=== PATIENT | female | born 1965 | race Caucasian/White ===

== ENCOUNTER → 2016-08-20 | Outpatient (CLI) | payer MEDICAID, MEDICARE ==
[~2016-08-20] MED LIST: BENT20TA PO; CELE20TA PO; CLAR10CA3 PO; COLA100C3 PO; CYTO100T PO; DOXE10CA PO; HYDR25T PO; INDO50CA PO; ISOVUE-370 76% 100ML VIAL (Q9967) As Ordered ONE; LAMI25TA PO; LYRI150C PO; PARO30TA PO; POLYOPD OU; REME15TA PO; SENO8.6T2 PO; TRAZ50TA4 PO; ZOFR20TA PO; ZOFR4SOL PO; lioresal PO
--- NOTE | 2016-08-20 08:39 | REP ---
Clinical: Follow-up pulmonary nodule. Comparison: 12/11/2015, 05/11/2014. Findings: The lung caruso are relatively well aerated, symmetric and without significant acute consolidation, nodule or mass lesion. Small scattered calcified granulomata along with partially calcified mediastinal and hilar lymph nodes compatible with prior granulomatous disease. A 4 mm noncalcified nodule in the peripheral left lower lobe (image 84) remains stable through 05/11/2014 and likely represents noncalcified granuloma. No adenopathy. No pleural effusion/reaction. No pneumothorax. Mediastinum demonstrates normal thoracic aorta, pulmonary vasculature and heart/pericardium. Tracheobronchial tree is patent (incidental small right tracheal diverticulum again noted). Surrounding musculoskeletal structures without focal osseous abnormality. Limited evaluation of the upper abdomen demonstrates normal bilateral adrenal glands. Impression: 1. Evidence for prior granulomatous disease including the 4 mm noncalcified nodule in the left lower lobe which remains stable over 2 years. 2. No acute, significant mediastinal or pleuroparenchymal process. Signed by Theron Echeverria MD 08/20/2016 08:31 A
== END ==
LOC: M RAD 07:52
PROVIDERS: ATTEND Student in an Organized Health Care Education/Training Program
DX: R91.1 Solitary pulmonary nodule (principal)
CPT/HCPCS: 71260; Q9967

== ENCOUNTER → 2016-12-17 | Outpatient (CLI) | payer MEDICAID, MEDICARE ==
[~2016-12-17] MED LIST changes: -COLA100C3 PO; +COLA100C5 PO; +HYDR-3363 PO; -HYDR25T PO; -ISOVUE-370 76% 100ML VIAL (Q9967) As Ordered ONE; -SENO8.6T2 PO; +SENO8.6T5 PO; +TRAZ50TA11 PO; -TRAZ50TA4 PO
== END ==
LOC: M LAB 13:19
PROVIDERS: ATTEND Psychiatry & Neurology Psychiatry
DX: Z51.81 Encounter for therapeutic drug level monitoring (principal); Z79.899 Other long term (current) drug therapy

== ENCOUNTER → 2016-12-17 | Outpatient (CLI) | payer MEDICAID, MEDICARE ==
[2016-12-17 15:00] LABS: ALBUMIN 3.7 GM/DL (3.2-5.2); ALBUMIN/GLOBULIN RATIO 1.37 (1.00-1.93); ALKALINE PHOSPHATASE 75 U/L (45-117); ALT/SGPT 15 U/L (12-78); ANION GAP 6 MEQ/L (8-16); AST/SGOT 9 U/L (15-37); BILIRUBIN,TOTAL 0.5 MG/DL (0.2-1.0); BLOOD UREA NITROGEN 11 MG/DL (7-18); CALCIUM LEVEL 8.8 MG/DL (8.5-10.1); CARBON DIOXIDE LEVEL 29 MEQ/L (21-32); CHLORIDE LEVEL 105 MEQ/L (98-107); CREATININE FOR GFR 0.98 MG/DL (0.55-1.02); GLOMERULAR FILTRATION RATE > 60.0 (>51); POTASSIUM SERUM 4.2 MEQ/L (3.5-5.1); SODIUM LEVEL 140 MEQ/L (136-145); TOTAL PROTEIN 6.4 GM/DL (6.4-8.2)
[2016-12-17 15:03] LABS: VITAMIN B12 LEVEL 452 PG/ML
[2016-12-17 15:04] LABS: FOLATE 7.6 NG/ML
[2016-12-18 08:10] LABS: GLUCOSE, FASTING 83 MG/DL (70-105)
== END ==
LOC: M LAB 13:24
PROVIDERS: ATTEND Obstetrics & Gynecology
DX: Z51.81 Encounter for therapeutic drug level monitoring (principal); Z79.899 Other long term (current) drug therapy; Z72.51 High risk heterosexual behavior

== ENCOUNTER → 2017-05-27 | Outpatient (REF) | payer MEDICARE ==
[2017-05-27 19:44] LABS: HEMATOCRIT 38.6 % (36.0-47.0); HEMOGLOBIN 12.8 g/dl (12.0-15.5); MEAN CORPUSCULAR HEMOGLOBIN 29.8 pg (27.0-33.0); MEAN CORPUSCULAR HGB CONC 33.2 g/dl (32.0-36.5); MEAN CORPUSCULAR VOLUME 89.8 fl (80.0-96.0); PLATELET COUNT, AUTOMATED 249 10^3/uL (150-450); RED CELL DISTRIBUTION WIDTH 15.1 % (11.5-14.5); WHITE BLOOD COUNT 4.8 10^3/uL (4.0-10.0)
[2017-05-27 20:47] LABS: FREE T4 0.92 NG/DL (0.76-1.46); THYROID STIMULATING HORMONE 0.834 uIU/ML (0.358-3.740)
== END ==
LOC: M LABNEURO 12:44
DX: R53.83 Other fatigue (principal)
CPT/HCPCS: 84443

== ENCOUNTER → 2017-05-27 | Outpatient (REF) | payer MEDICARE | LOC: M SFHCPLAZ 12:10 | DX: R53.83 Other fatigue (principal); Z53.8 Procedure and treatment not carried out for other reasons ==

== ENCOUNTER → 2017-10-06 | Outpatient (REF) | payer MEDICARE | LOC: M SFHCPLAZ 14:45 | DX: R33.9 Retention of urine, unspecified (principal); Z51.81 Encounter for therapeutic drug level monitoring; Z53.8 Procedure and treatment not carried out for other reasons ==

== ENCOUNTER → 2017-10-06 | Outpatient (CLI) | payer MEDICARE ==
[2017-10-06 17:20] LABS: ALBUMIN 3.9 GM/DL (3.2-5.2); ALKALINE PHOSPHATASE 68 U/L (45-117); ALT/SGPT 22 U/L (12-78); ANION GAP 6 MEQ/L (8-16); AST/SGOT 13 U/L (7-37); BILIRUBIN,TOTAL 0.3 MG/DL (0.2-1.0); BLOOD UREA NITROGEN 11 MG/DL (7-18); CARBON DIOXIDE LEVEL 30 MEQ/L (21-32); CHLORIDE LEVEL 105 MEQ/L (98-107); GLOMERULAR FILTRATION RATE > 60.0 (>51); GLUCOSE, FASTING 81 MG/DL (70-100); POTASSIUM SERUM 4.2 MEQ/L (3.5-5.1); SODIUM LEVEL 141 MEQ/L (136-145); TOTAL PROTEIN 6.9 GM/DL (6.4-8.2)
[2017-10-06 17:39] LABS: APPEARANCE, URINE MANUAL HAZY (CLEAR); BILIRUBIN, URINE MANUAL NEGATIVE (NEGATIVE); COLOR, URINE MANUAL YELLOW (YELLOW); GLUCOSE, URINE (UA) MANUAL NEGATIVE (NEGATIVE); KETONE, URINE MANUAL NEGATIVE (NEGATIVE); NITRITE, URINE MANUAL POSITIVE (NEGATIVE); PH,URINE MAN 5.5 UNITS (5.0 - 7.0); PROTEIN, URINE MANUAL NEGATIVE (NEGATIVE); UROBILINOGEN, URINE MANUAL NORMAL (NORMAL)
[2017-10-06 17:40] LABS: BLOOD URINE MANUAL NEGATIVE (NEGATIVE); LEUKOCYTE ESTERASE, URINE MAN NEGATIVE (NEGATIVE); MICROSCOPIC INDICATED? MAN YES (NO)
[2017-10-06 17:48] LABS: BACTERIA, URINE LARGE AMOUNT; HYALINE CAST, URINE NONE SEEN /lpf (0-1); MICROSCOPIC EXAM PERFORMED; RBC, URINE NONE SEEN /hpf (0-3); SQUAMOUS EPITHELIAL CELL URINE SMALL AMOUNT /hpf (SMALL AMT); WBC, URINE 0-1 /hpf (0-3)
== END ==
LOC: M LAB 15:47
DX: R33.9 Retention of urine, unspecified (principal); Z51.81 Encounter for therapeutic drug level monitoring; Z79.899 Other long term (current) drug therapy
CPT/HCPCS: 80053

== ENCOUNTER → 2017-10-13 | Outpatient (REF) | payer MEDICARE | LOC: M SFHCPLAZ 16:31 | DX: F31.9 Bipolar disorder, unspecified (principal); Z53.8 Procedure and treatment not carried out for other reasons ==

== ENCOUNTER → 2017-10-15 | Outpatient (CLI) | payer MEDICARE | LOC: M RAD 08:03 | DX: N85.4 Malposition of uterus (principal); R10.32 Left lower quadrant pain | CPT/HCPCS: 76856 ==

== ENCOUNTER → 2017-11-11 | Outpatient (CLI) | payer MEDICARE ==
[2017-11-11 13:59] LABS: HEMATOCRIT 38.5 % (36.0-47.0); HEMOGLOBIN 12.4 g/dl (12.0-15.5); MEAN CORPUSCULAR HGB CONC 32.2 g/dl (32.0-36.5); PLATELET COUNT, AUTOMATED 248 10^3/uL (150-450); RED BLOOD COUNT 4.14 10^6/uL (4.00-5.40); WHITE BLOOD COUNT 5.4 10^3/uL (4.0-10.0)
[2017-11-11 14:46] LABS: ALBUMIN 3.9 GM/DL (3.2-5.2); ALBUMIN/GLOBULIN RATIO 1.26 (1.00-1.93); ALKALINE PHOSPHATASE 72 U/L (45-117); ALT/SGPT 23 U/L (12-78); ANION GAP 6 MEQ/L (8-16); AST/SGOT 11 U/L (7-37); BILIRUBIN,TOTAL 0.3 MG/DL (0.2-1.0); BLOOD UREA NITROGEN 13 MG/DL (7-18); CARBON DIOXIDE LEVEL 29 MEQ/L (21-32); CHLORIDE LEVEL 107 MEQ/L (98-107); CREATININE FOR GFR 0.91 MG/DL (0.55-1.30); GLOMERULAR FILTRATION RATE > 60.0 (>51); GLUCOSE, FASTING 79 MG/DL (70-100); SODIUM LEVEL 142 MEQ/L (136-145)
[2017-11-14 09:57] LABS: LAMOTRIGINE (LAMICTAL) 6.7 ug/mL (2.0-20.0)
== END ==
LOC: M LAB 13:06
DX: R53.83 Other fatigue (principal); F31.9 Bipolar disorder, unspecified
CPT/HCPCS: 84443

== ENCOUNTER → 2017-11-18 | Outpatient (CLI) | payer MEDICARE ==
[2017-11-21 00:06] LABS: LAMOTRIGINE (LAMICTAL) 3.9 ug/mL (2.0-20.0)
== END ==
LOC: M LAB 14:43
DX: F31.9 Bipolar disorder, unspecified (principal)
CPT/HCPCS: 36415

== ENCOUNTER 2017-11-23 18:29 | Emergency (ER) | payer MEDICARE ==
[2017-11-23 18:46] LABS: BEDSIDE GLUCOSE 128 MG/DL (70-105)
[2017-11-23 18:51] LABS: HEMATOCRIT 38.4 % (36.0-47.0); MEAN CORPUSCULAR HEMOGLOBIN 30.4 pg (27.0-33.0); MEAN CORPUSCULAR HGB CONC 33.9 g/dl (32.0-36.5); MEAN CORPUSCULAR VOLUME 89.7 fl (80.0-96.0); PLATELET COUNT, AUTOMATED 252 10^3/uL (150-450); RED BLOOD COUNT 4.28 10^6/uL (4.00-5.40); RED CELL DISTRIBUTION WIDTH 14.6 % (11.5-14.5); WHITE BLOOD COUNT 7.1 10^3/uL (4.0-10.0)
[2017-11-23] MEDS: PREGABALIN 100 MG CAP (LYRICA) PO (19:06)
[2017-11-23] MEDS: NS 1,000 ML IV (19:06)
[2017-11-23] MEDS: LORazepam 2 MG/ML VIAL (J2060) IV (19:06)
[2017-11-23 19:36] LABS: ACETAMINOPHEN LEVEL < 2.0 UG/ML (10.0-30.0); ALBUMIN 4.2 GM/DL (3.2-5.2); ALKALINE PHOSPHATASE 74 U/L (45-117); ALT/SGPT 19 U/L (12-78); ANION GAP 9 MEQ/L (8-16); AST/SGOT 10 U/L (7-37); BILIRUBIN,DIRECT 0.1 MG/DL (0.0-0.2); BILIRUBIN,TOTAL 0.4 MG/DL (0.2-1.0); BLOOD UREA NITROGEN 9 MG/DL (7-18); CALCIUM LEVEL 8.8 MG/DL (8.5-10.1); CARBON DIOXIDE LEVEL 24 MEQ/L (21-32); CHLORIDE LEVEL 109 MEQ/L (98-107); CREATININE FOR GFR 0.96 MG/DL (0.55-1.30); ETHYL ALCOHOL (ETHANOL) < 0.003 % (0.000-0.010); GLOMERULAR FILTRATION RATE > 60.0 (>51); GLUCOSE, FASTING 117 MG/DL (70-100); POTASSIUM SERUM 3.6 MEQ/L (3.5-5.1); SALICYLATE LEVEL 2.8 MG/DL (5.0-30.0); SODIUM LEVEL 142 MEQ/L (136-145); TOTAL PROTEIN 7.2 GM/DL (6.4-8.2)
[2017-11-23 20:47] LABS: AMPHETAMINES LEVEL URINE NEGATIVE (NEGATIVE); BARBITURATES URINE NEGATIVE (NEGATIVE); BENZODIAZEPINES URINE NEGATIVE (NEGATIVE); CANNABINOIDS URINE POSITIVE (NEGATIVE); COCAINE METABOLITE URINE NEGATIVE (NEGATIVE); METHADONE URINE NEGATIVE (NEGATIVE); OPIATES URINE NEGATIVE (NEGATIVE); PHENCYCLIDINE URINE NEGATIVE (NEGATIVE)
== END 2017-11-23 21:06 | disposition home or self-care (01) ==
LOC: M ED 18:29
DX: F15.23 Other stimulant dependence with withdrawal (principal); M79.7 Fibromyalgia; G89.29 Other chronic pain; Z79.899 Other long term (current) drug therapy; F17.200 Nicotine dependence, unspecified, uncomplicated
CPT/HCPCS: J2060

== ENCOUNTER → 2017-11-25 | Outpatient (REF) | payer MEDICARE | LOC: M SFHCPLAZ 12:44 | DX: Z51.81 Encounter for therapeutic drug level monitoring (principal) ==

== ENCOUNTER → 2017-11-26 | Outpatient (REF) | payer MEDICARE | LOC: M SFHCPLAZ 15:23 | DX: Z51.81 Encounter for therapeutic drug level monitoring (principal) | CPT/HCPCS: 80307 ==

== ENCOUNTER → 2018-01-13 | Outpatient (CLI) | payer MEDICAID, MEDICARE ==
[~2018-01-13] MED LIST changes: +AMAN100T PO; +BACL10TA2 PO; +CELE1CAP9 PO; +ESCI20TA PO; +LAMO100T PO; +LYRI300C PO; +ONDA4TAB6 PO; +PANT40TA3 PO; +PREG100CA PO; +TRAZ-160 PO; -TRAZ50TA11 PO; -ZOFR20TA PO; +ZOFR4TAB16 PO
--- NOTE | 2018-01-13 12:00 | REPMRS ---
Patient History The patient states she had a clinical breast exam in 2017. Family history of prostate cancer at age 50 or over in maternal grandfather. Digital Mammo Screening Bilat: January 13, 2018 - Exam #: [id number] Bilateral CC and MLO view(s) were taken. Technologist: Sylvia Call, Technologist Prior study comparison: December 11, 2015, bilateral digital mammo screening bilat performed at [facility]. October 10, 2014, bilateral digital mammo screening bilat performed at [facility]. FINDINGS: The breast tissue is heterogeneously dense. This may lower the sensitivity of mammography. There has been no change in the appearance of the mammogram from the prior studies. There is a moderate amount of residual fibroglandular tissue which is fairly symmetric. There is no interval development of dominant mass, architectural distortion, or clustered microcalcification typical of malignancy. There are scattered, small, benign calcifications of doubtful clinical significance. 3-D tomosynthesis shows no additional findings. No significant changes when compared with prior studies. Assessment: BI-RADS/ACR category 2 mammogram. Benign finding(s). Recommendation Routine screening mammogram in 1 year (for women over age 40). This mammogram was interpreted with the aid of an FDA-approved computer-aided dectection system. A. Negative x-ray reports should not delay biopsy if a dominant or clinically suspicious mass is present. B. Four to eight percent of cancers are not identified by mammography. C. Adenosis and dense breast may obscure an underlying neoplasm. Electronically Signed By: Remigio Wolfe MD 01/13/18 1200
== END ==
LOC: M RAD 10:55
PROVIDERS: ATTEND Obstetrics & Gynecology
DX: Z12.31 Encounter for screening mammogram for malignant neoplasm of breast (principal)

== ENCOUNTER 2018-05-14 11:42 | Day surgery (SDC) | payer MEDICAID, MEDICARE ==
[~2018-05-14] VITALS: Ht 165.1 cm; Wt 68.4 kg
[~2018-05-14 11:42] MED LIST changes: +ARTI99.0 OP; +MIRA3350 PO; +NS 1,000 ML IV ONE; +VITA400D PO
[2018-05-14] MEDS ORDERED: TIZA2CAP PO ×2 (12:26)
[2018-05-14] MEDS ORDERED: fentaNYL 100 MCG/2 ML INJECTION (J3010) As Ordered ONE (13:08)
[2018-05-14] MEDS ORDERED: PROPOFOL 200 MG/20 ML VIAL As Ordered ONE (13:22)
[2018-05-14] MEDS ORDERED: LIDOCAINE 2% INJ 100 MG/5 ML SDV (FOR ANES.) As Ordered ONE (13:22)
--- NOTE | 2018-05-14 13:23 | ROOR ---
Patient Name: Cheli Rincon Procedure Date: 05/14/2018 1:08 PM Date of : 1965 Age: 52 Room: [facility] Gender: Female Note Status: Finalized Procedure: Upper GI endoscopy Indications: Dyspepsia, Nausea Providers: Gary CHEEMA MD Referring MD[facility] Allen Requesting Provider: Medicines: Monitored Anesthesia Care Complications: No immediate complications. Procedure: Pre-Anesthesia Assessment: - The heart rate, respiratory rate, oxygen saturations, blood pressure, adequacy of pulmonary ventilation, and response to care were monitored throughout the procedure. The Endoscope was introduced through the mouth, and advanced to the second part of duodenum. The upper GI endoscopy was accomplished without difficulty. The patient tolerated the procedure well. Findings: The esophagus was normal. The stomach was normal. The examined duodenum was normal. Impression: - Normal esophagus. - Normal stomach. - Normal examined duodenum. - No specimens collected. Recommendation: - Continue present medications. - Observe patient's clinical course. Gary Cheema MD Gary CHEEMA MD 05/14/2018 1:22:37 PM This report has been signed electronically. Number of Addenda: 0 Note Initiated On: 05/14/2018 1:08 PM Estimated Blood Loss: Estimated blood loss: none.
--- NOTE | 2018-05-14 13:34 | ROOR ---
Patient Name: Cheli Rincon Procedure Date: 05/14/2018 1:09 PM Date of : 1965 Age: 52 Room: [facility] Gender: Female Note Status: Finalized Procedure: Colonoscopy Indications: Generalized abdominal pain, Constipation Providers: Gary CHEEMA MD Referring MD: HEATHER MURILLO Heike [facility] HEATHER Allen Requesting Provider: Medicines: Monitored Anesthesia Care Complications: No immediate complications. Procedure: Pre-Anesthesia Assessment: - The heart rate, respiratory rate, oxygen saturations, blood pressure, adequacy of pulmonary ventilation, and response to care were monitored throughout the procedure. The Colonoscope was introduced through the anus and advanced to the cecum, identified by appendiceal orifice and ileocecal valve. The colonoscopy was performed with difficulty due to inadequate bowel prep. The patient tolerated the procedure well. The quality of the bowel preparation was poor. (Magnesium Citrate Plus Suprep) Findings: The perianal and digital rectal examinations were normal. The colon is grossly normal without large tumors or obstructing lesions. Unable to perform adequate detail examination. Small lesions may have been missed. Impression: - Preparation of the colon was poor. - The colon is grossly normal without large tumors or obstructing lesions. Unable to perform adequate detail examination. Small lesions may have been missed. - No specimens collected. Recommendation: - Repeat colonoscopy at the next available appointment because the bowel preparation was poor. - My office will put you on a recall schedule. You will be notified at the appropriate time for follow up. Gary Cheema MD Gary CHEEMA MD 05/14/2018 1:34:00 PM This report has been signed electronically. Number of Addenda: 0 Note Initiated On: 05/14/2018 1:09 PM Estimated Blood Loss: Estimated blood loss: none.
[2018-05-14 14:10] VITALS: BP 121/73
== END 2018-05-14 14:22 | disposition home or self-care (01) ==
LOC: M OPP 11:42
PROVIDERS: ATTEND Internal Medicine Gastroenterology
DX: K59.00 Constipation, unspecified (principal); R10.84 Generalized abdominal pain; R10.13 Epigastric pain; R11.0 Nausea; G47.30 Sleep apnea, unspecified; M79.7 Fibromyalgia; I48.91 Unspecified atrial fibrillation; Z79.899 Other long term (current) drug therapy
CPT/HCPCS: 43235; 45378; J3010

== ENCOUNTER → 2018-08-06 | Outpatient (REF) | payer MEDICARE, MEDICAID ==
[~2018-08-06] MED LIST changes: -INDO50CA PO; +INDO50CA11 PO; -NS 1,000 ML IV ONE; +TIZA2CAP PO; -TRAZ-160 PO; +TRAZ-252 PO
== END ==
LOC: M LABNEURO 15:33
PROVIDERS: ATTEND Family Medicine
DX: R53.82 Chronic fatigue, unspecified (principal)

== ENCOUNTER 2018-11-26 08:29 | Day surgery (SDC) | payer MEDICARE ==
[~2018-11-26] VITALS: Ht 165.1 cm; Wt 69.0 kg
[~2018-11-26 08:29] MED LIST changes: -ARTI99.0 OP; +ARTIDRO2 OP; -INDO50CA11 PO; +INDO50CA91 PO; +NS 1,000 ML IV ONE; +SERT25TA88 PO; +TIZA4TAB4 PO
[2018-11-26] MEDS ORDERED: LIDOCAINE 2% INJ 100 MG/5 ML SDV (FOR ANES.) As Ordered ONE (11:05)
[2018-11-26] MEDS ORDERED: PROPOFOL 200 MG/20 ML VIAL As Ordered ONE ×3 (11:05→12:05)
--- NOTE | 2018-11-26 11:40 | ROOR ---
Patient Name: Cheli Rincon Procedure Date: 11/26/2018 11:05 AM Date of : 1965 Age: 53 Room: [id number] Gender: Female Note Status: Finalized Procedure: Colonoscopy Indications: Change in bowel habits, Constipation. Previous colonoscopy with poor prep. Providers: Gary CHEEMA MD Referring MD: Helio Ambriz Do, KERVIN SANCHEZ MD Requesting Provider: Medicines: Monitored Anesthesia Care Complications: No immediate complications. Procedure: Pre-Anesthesia Assessment: - The heart rate, respiratory rate, oxygen saturations, blood pressure, adequacy of pulmonary ventilation, and response to care were monitored throughout the procedure. The Colonoscope was introduced through the anus and advanced to the terminal ileum, with identification of the appendiceal orifice and IC valve. The colonoscopy was performed without difficulty. The patient tolerated the procedure well. The quality of the bowel preparation was good. (Neurogenic colon prep)--8 Liter Golytely, Findings: The perianal and digital rectal examinations were normal. Two sessile polyps were found in the sigmoid colon. The polyps were 3 to 5 mm in size. These polyps were removed with a cold snare. Resection and retrieval were complete. The exam was otherwise without abnormality on direct and retroflexion views. Impression: - Two 3 to 5 mm polyps in the sigmoid colon, removed with a cold snare. Resected and retrieved. - Small to moderate Internal Hemorrhoids - The examination was otherwise normal on direct and retroflexion views. Recommendation: - Telephone endoscopist for pathology results in 2 weeks. - If the pathology report reveals adenomatous tissue, then repeat the colonoscopy for surveillance in 5 years. Gary Cheema MD Gary CHEEMA MD 11/26/2018 11:40:21 AM Electronically signed by Gary CHEEMA MD Number of Addenda: 0 Note Initiated On: 11/26/2018 11:05 AM Estimated Blood Loss: Estimated blood loss: none.
[2018-11-26 11:55] VITALS: BP 121/73
[2018-11-26] MEDS ORDERED: ePHEDrine SULFATE 25 MG/5 ML(5MG/ML) SYRINGE As Ordered ONE (12:05)
== END 2018-11-26 12:12 | disposition home or self-care (01) ==
LOC: M OPP 08:29
PROVIDERS: ATTEND Internal Medicine Gastroenterology
DX: R19.4 Change in bowel habit (principal); K59.00 Constipation, unspecified; D12.5 Benign neoplasm of sigmoid colon; K64.8 Other hemorrhoids; R00.8 Other abnormalities of heart beat; K21.9 Gastro-esophageal reflux disease without esophagitis; M19.90 Unspecified osteoarthritis, unspecified site; M54.89 Other dorsalgia; M54.2 Cervicalgia; L30.9 Dermatitis, unspecified; L40.9 Psoriasis, unspecified; F41.9 Anxiety disorder, unspecified; F32.9 Major depressive disorder, single episode, unspecified; G43.909 Migraine, unspecified, not intractable, without status migrainosus; F43.10 Post-traumatic stress disorder, unspecified; G47.8 Other sleep disorders; G47.30 Sleep apnea, unspecified; M79.7 Fibromyalgia; R06.83 Snoring; Z79.899 Other long term (current) drug therapy

== ENCOUNTER → 2018-12-31 | Outpatient (CLI) | payer MEDICARE ==
[~2018-12-31] MED LIST changes: -NS 1,000 ML IV ONE; +SERT25TA21 PO; -SERT25TA88 PO
[2018-12-31 13:27] LABS: HEMOGLOBIN A1c 5.4 %
[2018-12-31 13:41] LABS: ALBUMIN 3.8 GM/DL (3.2-5.2); ALT/SGPT 22 U/L (12-78); BILIRUBIN,TOTAL 0.6 MG/DL (0.2-1.0); BLOOD UREA NITROGEN 12 MG/DL (7-18); CALCIUM LEVEL 8.9 MG/DL (8.5-10.1); CARBON DIOXIDE LEVEL 29 MEQ/L (21-32); CHLORIDE LEVEL 106 MEQ/L (98-107); CHOLESTEROL LEVEL 171 MG/DL (< 200); CHOLESTEROL LEVEL 171 MG/DL (<200); CHOLESTEROL RISK RATIO 2.085 (<5); GLOMERULAR FILTRATION RATE > 60.0 (>51); GLUCOSE, FASTING 80 MG/DL (70-100); HDL CHOLESTEROL 82 MG/DL (>40); LDL CHOLESTEROL 76 MG/DL (<100); NON-HDL-C 89 MG/DL; POTASSIUM SERUM 4.3 MEQ/L (3.5-5.1); SODIUM LEVEL 140 MEQ/L (136-145); TOTAL PROTEIN 6.6 GM/DL (6.4-8.2); TRIGLYCERIDES LEVEL 64 MG/DL (<150)
== END ==
LOC: M LAB 12:25
PROVIDERS: ATTEND Nurse Practitioner Psychiatric/Mental Health
DX: F31.9 Bipolar disorder, unspecified (principal); Z79.899 Other long term (current) drug therapy

== ENCOUNTER 2019-05-10 13:29 | Emergency (ER) | payer MEDICARE ==
[~2019-05-10] VITALS: Ht 165.1 cm; Wt 68.2 kg
[~2019-05-10 13:29] MED LIST changes: -ARTIDRO2 OP; -LAMO100T PO; +LAMO100T3 PO; +POLYOPD OP
[2019-05-10] MEDS ORDERED: MIRT1TAB15 (13:39)
[2019-05-10 14:37] LABS: BASO # 0.1 10^3/uL (0.0-0.2); BASO % 0.6 % (0.0-1.0); EOS # 0.1 10^3/uL (0.0-0.5); HEMATOCRIT 37.9 % (36.0-47.0); HEMOGLOBIN 12.4 g/dl (12.0-15.5); LYMPH # 0.8 10^3/uL (1.5-5.0); LYMPH % 7.3 % (24.0-44.0); MEAN CORPUSCULAR HEMOGLOBIN 27.8 pg (27.0-33.0); MEAN CORPUSCULAR HGB CONC 32.7 g/dl (32.0-36.5); MONO % 8.4 % (0.0-5.0); NEUTROPHILS # 9.3 10^3/uL (1.5-8.5); NEUTROPHILS % 82.4 % (36.0-66.0); PLATELET COUNT, AUTOMATED 300 10^3/uL (150-450); RED BLOOD COUNT 4.46 10^6/uL (4.00-5.40); WHITE BLOOD COUNT 11.3 10^3/uL (4.0-10.0)
--- NOTE | 2019-05-10 14:45 | REP ---
PORTABLE CHEST X-RAY: SINGLE VIEW. HISTORY: Dyspnea and cough. Comparison chest x-ray: November 30, 2015. FINDINGS: Heart is not enlarged. Pleural angles are sharp. Interstitial markings are increased in the bases bilaterally consistent with interstitial infiltrates. There is granulomatous calcification behind the heart unchanged. IMPRESSION: Bibasilar interstitial lung disease consistent with interstitial infiltrates. Normal heart size. Interstitial changes are new from November 30, 2015. Granulomatous calcification projects over the left heart border. Electronically Signed by Cristian uFng MD 05/10/2019 03:23 P
[2019-05-10 15:08] LABS: ALBUMIN 3.7 GM/DL (3.2-5.2); ALT/SGPT 21 U/L (12-78); BILIRUBIN,DIRECT 0.2 MG/DL (0.0-0.2); BILIRUBIN,TOTAL 0.5 MG/DL (0.2-1.0); BLOOD UREA NITROGEN 9 MG/DL (7-18); CALCIUM LEVEL 8.9 MG/DL (8.5-10.1); CARBON DIOXIDE LEVEL 22 MEQ/L (21-32); CHLORIDE LEVEL 107 MEQ/L (98-107); CK-MB VALUE MASS 1.3 NG/ML (<3.6); CPK CREATINE PHOSPHOKINASE 79 U/L (26-192); CREATININE FOR GFR 0.87 MG/DL (0.55-1.30); GLOMERULAR FILTRATION RATE > 60.0 (>51); GLUCOSE, FASTING 87 MG/DL (70-100); MB/CK RELATIVE INDEX 1.65 (< OR =4); NT-PRO BNP 481 PG/ML (<125); POTASSIUM SERUM 4.1 MEQ/L (3.5-5.1); SODIUM LEVEL 140 MEQ/L (136-145); TOTAL PROTEIN 7.1 GM/DL (6.4-8.2); TROPONIN I < 0.02 NG/ML (< 0.10)
[2019-05-10] MEDS ORDERED: ISOVUE-370 76% 100ML VIAL (Q9967) As Ordered ONE (15:23)
[2019-05-10] MEDS ORDERED: predniSONE 20 MG TAB PO ONE (17:00)
[2019-05-10] MEDS ORDERED: PRED10TA2 PO (17:02)
[2019-05-10 17:17] VITALS: BP 124/72
--- NOTE | 2019-05-10 17:28 | ECGEPIP ---
[facility] - ED Test Date: 2019-05-10 Pat Name: LORNA PRADHAN Department: Room: - Gender: Female Type Caster: : 1965 Requested By: Kylie Keane Order Number: [id number] Reading MD: Kylie Keane Measurements Intervals [place] Rate: 82 P: 61 DC: 160 QRS: 54 QRSD: 97 T: 40 QT: 364 QTc: 428 Interpretive Statements SINUS RHYTHM POSSIBLE RIGHT VENTRICULAR CONDUCTION DELAY DECREASED RATE 05/29/14 Electronically Signed on 05-10-2019 17:27:53 EDT by Kylie Keane
--- NOTE | 2019-05-10 17:28 | REP ---
CT ANGIO CHEST: TECHNIQUE: Axial contrast enhanced images from the thoracic inlet to the upper abdomen using 100 mL Isovue 370 intravenous contrast material with multiplanar reformations. There is no CT evidence of pulmonary embolism. There is no thoracic aortic aneurysm or dissection. A few calcified granulomas are seen in the lower lobes. Calcified mediastinal and hilar lymph nodes are present. There is no pleural or pericardial effusion. Diffuse bilateral patchy ill-defined infiltrates are visualized, more so in the lower lobes bilaterally. These are nonspecific. Calcified granuloma is seen in the spleen. IMPRESSION: Nonspecific diffuse bilateral patchy ill-defined infiltrates bilaterally, more so in the lower lobes. No evidence of pulmonary embolism. No evidence of aortic dissection. Evidence of prior granulomatous disease. Electronically Signed by Sim Alvarado MD 05/10/2019 06:27 P
--- NOTE | 2019-05-11 12:11 | ED PDOC ---
Post-Departure Follow-Up dr beach faxed formal report of cxr for fu Joey Khoury MD May 11, 2019 12:11
--- NOTE | 2019-05-11 12:27 | ED PDOC ---
Post-Departure Follow-Up dr beach faxed cta chest for fu Joey Khoury MD May 11, 2019 12:27
== END 2019-05-10 17:22 | disposition home or self-care (01) ==
LOC: M ED 13:29
DX: R06.00 Dyspnea, unspecified (principal); R07.9 Chest pain, unspecified; J84.9 Interstitial pulmonary disease, unspecified; R91.8 Other nonspecific abnormal finding of lung field; F17.290 Nicotine dependence, other tobacco product, uncomplicated; R00.0 Tachycardia, unspecified; F31.9 Bipolar disorder, unspecified; M79.7 Fibromyalgia; M54.9 Dorsalgia, unspecified; Z79.899 Other long term (current) drug therapy
CPT/HCPCS: 71045; 71275; 80048; 80076; 82550; 82553; 83880; 84443; 84484; 85025; 85379; 93005; 93041; 94760; 99284; Q9967

== ENCOUNTER → 2019-05-30 | Outpatient (CLI) | payer MEDICARE ==
[~2019-05-30] MED LIST changes: +MIRT1TAB15; +PRED10TA2 PO
== END ==
LOC: M LABSMTC 10:48
PROVIDERS: ATTEND Family Medicine
DX: Z11.59 Encounter for screening for other viral diseases (principal); Z20.828 Contact with and (suspected) exposure to other viral communicable diseases

== ENCOUNTER → 2019-06-15 | Outpatient (CLI) | payer MEDICARE ==
--- NOTE | 2019-06-16 04:08 | REPPI ---
Clinical: Abnormal chest CT findings. Followup . Comparison: Chest CT dated 05/10/2019 . Technique: PA and lateral. Findings: The mediastinum and cardiac silhouette are normal. The lung caruso are clear and without acute consolidation, effusion, or pneumothorax. Previously noted infiltrates have resolved. The skeletal structures are intact and normal. Impression: 1. No acute cardiopulmonary process. 2. Previous infiltrate resolved. Electronically Signed by Theron Echeverria MD 06/16/2019 04:00 A
== END ==
LOC: M PLAIMG 11:59
PROVIDERS: ATTEND Family Medicine
DX: R93.89 Abnormal findings on diagnostic imaging of other specified body structures (principal)
CPT/HCPCS: 71046; G0463

== ENCOUNTER 2019-08-24 13:57 | Emergency (ER) | payer MEDICARE ==
[~2019-08-24] VITALS: Ht 165.1 cm; Wt 81.9 kg
[~2019-08-24 13:57] MED LIST changes: -PARO30TA PO; +PARO30TA65 PO
[2019-08-24] MEDS ORDERED: PRED10TA2 PO (15:33)
[2019-08-24 15:37] VITALS: BP 128/79
== END 2019-08-24 15:45 | disposition home or self-care (01) ==
LOC: M ED 13:57
DX: L30.9 Dermatitis, unspecified (principal)

== ENCOUNTER → 2019-11-11 | Outpatient (CLI) | payer MEDICARE ==
[~2019-11-11] MED LIST changes: -CYTO100T PO; +CYTO1TAB2 PO; +PANT40TA29 PO; -PANT40TA3 PO
--- NOTE | 2019-11-25 10:05 | REP ---
CERVICAL SPINE X-RAY: CLINICAL: Neuropathy TECHNIQUE: AP and lateral views of the cervical spine. FINDINGS: Advanced degenerative spondylosis noted at C5-6 through C6-7 and C7-T1. Findings include endplates sclerosis, disc space narrowing, osteophytosis and hypertrophic facet changes. No acute fracture/compression injury or subluxation. The spinous process are intact. Prevertebral soft tissues are normal. IMPRESSION: Advanced degenerative changes from C5-6 through C7-T1. MTDD
--- NOTE | 2019-11-25 10:05 | REP ---
THORACIC SPINE SERIES: CLINICAL: Pain. TECHNIQUE: AP and lateral FINDINGS: Alignment and kyphosis is maintained. Moderate multilevel degenerative changes include endplate sclerosis with marginal spurring/osteophyte formation and scattered disc space narrowing. No acute fracture/compression injury or subluxation. IMPRESSION: Moderate multilevel degenerative spondylosis. MTDD
--- NOTE | 2019-11-25 10:06 | REP ---
RADIOLOGY NOTE LUMBAR SPINE X-RAY: CLINICAL: Back pain. TECHNIQUE: AP and lateral FINDINGS: Frontal view demonstrates mild chronic dextroconvex scoliosis centered at L2-3 along with endplates sclerosis and disc space narrowing. The lateral views demonstrates normal lordosis and no evidence for acute fracture/compression injury or subluxation. Moderate multilevel degenerative changes include end plates sclerosis with marginal spurring and disc space narrowing. IMPRESSION: Chronic dextroconvex scoliosis and mild to moderate multilevel degenerative spondylosis. No acute fracture/compression injury or subluxation. MTDD
== END ==
LOC: M LAB 15:44 → M RAD 15:44
PROVIDERS: ATTEND Chiropractor
DX: M99.01 Segmental and somatic dysfunction of cervical region (principal); M99.03 Segmental and somatic dysfunction of lumbar region; M54.13 Radiculopathy, cervicothoracic region; M51.36 Other intervertebral disc degeneration, lumbar region; M25.78 Osteophyte, vertebrae; M41.26 Other idiopathic scoliosis, lumbar region; M47.892 Other spondylosis, cervical region; M47.893 Other spondylosis, cervicothoracic region

== ENCOUNTER → 2020-03-24 | Outpatient (CLI) | payer MEDICARE ==
[~2020-03-24] MED LIST changes: -ESCI20TA PO; +ESCI20TA16 PO; +MIRT-62 PO; -REME15TA PO
[2020-03-24 13:49] LABS: BASO # 0.1 10^3/uL (0.0-0.2); BASO % 1.1 % (0.0-1.0); EOS # 0.2 10^3/uL (0.0-0.5); EOS % 2.7 % (0.0-3.0); HEMATOCRIT 41.3 % (36.0-47.0); HEMOGLOBIN 13.5 g/dl (12.0-15.5); LYMPH # 1.4 10^3/uL (1.5-5.0); LYMPH % 25.5 % (24.0-44.0); MEAN CORPUSCULAR HEMOGLOBIN 28.5 pg (27.0-33.0); MEAN CORPUSCULAR HGB CONC 32.7 g/dl (32.0-36.5); MEAN CORPUSCULAR VOLUME 87.1 fl (80.0-96.0); MONO # 0.6 10^3/uL (0.0-0.8); MONO % 11.1 % (0.0-5.0); NEUTROPHILS # 3.3 10^3/uL (1.5-8.5); NEUTROPHILS % 59.4 % (36.0-66.0); PLATELET COUNT, AUTOMATED 288 10^3/uL (150-450); RED BLOOD COUNT 4.74 10^6/uL (4.00-5.40); WHITE BLOOD COUNT 5.6 10^3/uL (4.0-10.0)
[2020-03-24 14:25] LABS: ALBUMIN 4.1 GM/DL (3.2-5.2); ALT/SGPT 20 U/L (12-78); BILIRUBIN,TOTAL 0.4 MG/DL (0.2-1.0); BLOOD UREA NITROGEN 16 MG/DL (7-18); CALCIUM LEVEL 9.3 MG/DL (8.5-10.1); CARBON DIOXIDE LEVEL 29 MEQ/L (21-32); CHLORIDE LEVEL 105 MEQ/L (98-107); CREATININE FOR GFR 0.89 MG/DL (0.55-1.30); GLOMERULAR FILTRATION RATE > 60.0 (>51); GLUCOSE, FASTING 89 MG/DL (70-100); LIPASE 445 U/L (73-393); POTASSIUM SERUM 4.4 MEQ/L (3.5-5.1); SODIUM LEVEL 140 MEQ/L (136-145); TOTAL PROTEIN 6.9 GM/DL (6.4-8.2)
== END ==
LOC: M LAB 13:08
PROVIDERS: ATTEND Family Medicine
DX: R10.9 Unspecified abdominal pain (principal)
CPT/HCPCS: 36415; 80053; 83690; 85025; G0463

== ENCOUNTER → 2020-03-29 | Outpatient (REF) | payer MEDICARE ==
[2020-03-29 14:54] LABS: CHOLESTEROL RISK RATIO 2.448 (<5); THYROID STIMULATING HORMONE 3.21 uIU/ML (0.358-3.740); TOTAL 25(OH) VITAMIN D 28.5 NG/ML (30.0-100.0)
== END ==
LOC: M SFHCPLAZ 10:05
PROVIDERS: ATTEND Family Medicine
DX: R10.13 Epigastric pain (principal); E55.9 Vitamin D deficiency, unspecified; Z13.220 Encounter for screening for lipoid disorders; Z79.899 Other long term (current) drug therapy
CPT/HCPCS: 36415; 80061; 82306; 83690; 84443; G0402

== ENCOUNTER → 2020-04-11 | Outpatient (CLI) | payer MEDICARE ==
[~2020-04-11] MED LIST changes: +ISOVUE-370 76% 100ML VIAL As Ordered ONE
--- NOTE | 2020-04-11 18:57 | REP ---
INDICATION: EPIGASTRIC ABD PAIN. COMPARISON: Comparison CT study 26 September 2014.. TECHNIQUE: Helical scanning was acquired and 4 mm axial images are re-formatted. Coronal and sagittal MPR images were generated and reviewed. The contrast enhancement dose is 100 mL of intravenous Isovue 370. FINDINGS: Digital preliminary mineral resources inspector radiograph demonstrates an unremarkable bowel gas pattern. On axial CT images, the lung bases show no evidence of infiltrate or pleural effusion. There is a noncalcified nodule in the left lower lobe of the lung 5 mm in diameter. This is displayed on page 03/15/2049 in series 204 of today's study. This is unchanged from the September 2014 prior study and is felt to be a benign granulomatous nodule. There is a granulomatous calcification in the spleen. Spleen is normal in size and otherwise homogeneous. No focal liver lesion is seen. Liver size is normal. No abnormality is noted in the gallbladder or the pancreas. Kidneys enhance symmetrically. There is a cyst in the right midpole region measuring 2.4 cm in diameter. This measured 1.7 cm in diameter in 2015. There is no evidence of hydronephrosis or renal mass. No retroperitoneal mass or adenopathy is observed. A normal appendix is seen in the right lower quadrant. No uterine or ovarian abnormality is seen. Urinary bladder is intact. No abdominal wall defect is seen. Small and large bowel loops are unremarkable in the abdomen and pelvis. No bony destructive lesion is seen. IMPRESSION: No acute abdominal or pelvic abnormality. <Electronically signed by Mamadou Fung > 04/11/20 [id number]
== END ==
LOC: M RAD 16:38
PROVIDERS: ATTEND Family Medicine
DX: R10.13 Epigastric pain (principal)
CPT/HCPCS: 74177; Q9967

== ENCOUNTER → 2020-04-25 | Outpatient (CLI) | payer MEDICARE ==
[~2020-04-25] MED LIST changes: -ISOVUE-370 76% 100ML VIAL As Ordered ONE
--- NOTE | 2020-04-25 11:03 | REPMRS ---
Patient History The patient states she has not had a clinical breast exam in over a year. Family history of prostate cancer at age 50 or over in maternal grandfather. 3D TOMOSYNTHESIS WAS PERFORMED. The Arnav Easton lifetime risk for breast cancer is 7.2%. Volpara breast density c. Digital Woman Screen Mammo: April 25, 2020 - Exam #: [id number] Bilateral CC and MLO view(s) were taken. Technologist: Ana Magaña, Technologist Prior study comparison: January 13, 2018, bilateral digital mammo screening bilat, performed at [facility]. December 11, 2015, bilateral digital mammo screening bilat, performed at [facility]. FINDINGS: The breast tissue is heterogeneously dense. This may lower the sensitivity of mammography. There has been no change in the appearance of the mammogram from the prior studies. There is a moderate amount of residual fibroglandular tissue which is fairly symmetric. There is no interval development of dominant mass, areas of architectural distortion, or clustered microcalcification typical of malignancy. Assessment: BI-RADS/ACR category 1 mammogram. Negative Mammogram. Recommendation Routine screening mammogram in 1 year (for women over age 40). This mammogram was interpreted with the aid of an FDA-approved computer-aided dectection system. Electronically Signed By: Sim Alvarado MD 04/25/20 [id number]
== END ==
LOC: M WHC 10:08
PROVIDERS: ATTEND Family Medicine
DX: Z12.31 Encounter for screening mammogram for malignant neoplasm of breast (principal)

== ENCOUNTER → 2020-07-26 | Outpatient (CLI) | payer MEDICARE ==
--- NOTE | 2020-07-26 16:38 | REPPI ---
INDICATION: M25.552 PAIN IN LEFT HIP. COMPARISON: None TECHNIQUE: AP pelvis two views left hip FINDINGS: The hip joint spaces are symmetric and relatively well maintained. The femoral heads are spherical in shape and symmetric in appearance. There is no acute fracture, dislocation, or subluxation. IMPRESSION: Within normal limits <Electronically signed by Brant Giron > 07/26/20 [id number]
== END ==
LOC: M PLAIMG 15:49
PROVIDERS: ATTEND Hospitalist
DX: M25.552 Pain in left hip (principal)
CPT/HCPCS: 73502; G0463

== ENCOUNTER 2020-08-18 15:07 | Emergency (ER) | payer MEDICARE ==
[~2020-08-18] VITALS: Ht 165.1 cm; Wt 72.4 kg
[2020-08-18] MEDS ORDERED: LAMO150T3 PO (15:17)
[2020-08-18] MEDS ORDERED: ZOLO100T PO (15:17)
[2020-08-18] MEDS ORDERED: HYDR-3363 PO (15:17)
[2020-08-18] MEDS ORDERED: LIDOCAINE 4% CREAM 5GM (LMX4) TOP ONE (16:20)
[2020-08-18] MEDS ORDERED: diazePAM 10MG/2ML SYRINGE (J3360 PER 5MG) IV ONE (16:20)
[2020-08-18] MEDS ORDERED: KETOROLAC 30 MG/ML 1ML VIAL IV ONE (16:20)
[2020-08-18] MEDS ORDERED: ISOVUE-370 76% 100ML VIAL As Ordered ONE (16:54)
[2020-08-18 17:02] LABS: BASO # 0.1 10^3/uL (0.0-0.2); EOS # 0.2 10^3/uL (0.0-0.5); HEMOGLOBIN 14.3 g/dl (12.0-15.5); LYMPH # 1.4 10^3/uL (1.5-5.0); LYMPH % 23.7 % (24.0-44.0); MEAN CORPUSCULAR HEMOGLOBIN 30.2 pg (27.0-33.0); MEAN CORPUSCULAR HGB CONC 33.3 g/dl (32.0-36.5); MEAN CORPUSCULAR VOLUME 90.9 fl (80.0-96.0); MONO # 0.7 10^3/uL (0.0-0.8); MONO % 12.4 % (2.0-8.0); NEUTROPHILS # 3.6 10^3/uL (1.5-8.5); NEUTROPHILS % 59.6 % (36.0-66.0); PLATELET COUNT, AUTOMATED 288 10^3/uL (150-450); RED BLOOD COUNT 4.73 10^6/uL (4.00-5.40)
--- NOTE | 2020-08-18 18:08 | REPVR ---
PROCEDURE INFORMATION: Exam: CT Cervical Spine Without Contrast Exam date and time: 08/18/2020 4:20 PM Age: 54 years old Clinical indication: Neck pain; Additional info: Severe pain post chiro, left sided TECHNIQUE: Imaging protocol: Computed tomography images of the cervical spine without contrast. Radiation optimization: All CT scans at this facility use at least one of these dose optimization techniques: automated exposure control; mA and/or kV adjustment per patient size (includes targeted exams where dose is matched to clinical indication); or iterative reconstruction. COMPARISON: MRI-C SPINE W/O FOLL BY WITH 04/25/2014 2:18 PM FINDINGS: Bones/joints: Reversal of cervical lordosis. Discs/Spinal canal/Neural foramina: Disc space narrowing at C5-C6 through C7-T1 with intervertebral osteophytes. Moderate bilateral foraminal narrowing at C2, C3, C4, moderate foraminal narrowing on the right and severe foraminal narrowing on the left at C5, severe bilateral foraminal narrowing at C6 and C7 secondary to osteophytic encroachment. Disc osteophyte complexes from C5-C6 through C7-T1 resulting in varying degrees of effacement of the ventral subarachnoid space. This is resulting in mild to moderate cord impingement at C5-C6, moderate cord impingement at C6-C7 mild cord impingement at C7-T1. Small posterior disc protrusions demonstrated at C2-C3 through C4-C5 effaces the ventral subarachnoid space without cord impingement. Lungs: Lung apices are normal. Soft tissues: Unremarkable. IMPRESSION: 1. Degenerative spondylosis. 2. No acute findings. Electronically signed by: Claudy Coburn On 08/18/2020 18:07:42 PM
[2020-08-18] MEDS ORDERED: METH-1165 PO (19:20)
[2020-08-18] MEDS ORDERED: ANEC4CRE3 TOP (19:20)
[2020-08-18 19:41] VITALS: BP 114/69
== END 2020-08-18 19:44 | disposition home or self-care (01) ==
LOC: M ED 15:07
DX: M54.2 Cervicalgia (principal); M62.830 Muscle spasm of back; J45.909 Unspecified asthma, uncomplicated; M79.7 Fibromyalgia; Z79.899 Other long term (current) drug therapy; Z91.018 Allergy to other foods; F17.210 Nicotine dependence, cigarettes, uncomplicated
CPT/HCPCS: 70498; 72125; 80047; 85025; 96374; 96375; 99284; J1885; J3360; Q9967

== ENCOUNTER → 2020-09-15 | Outpatient (CLI) | payer MEDICARE, MEDICAID ==
[~2020-09-15] MED LIST changes: +ANEC4CRE3 TOP; +LAMO150T3 PO; +METH-1165 PO; +ZOLO100T PO
[2020-09-15 13:28] LABS: BASO # 0.1 10^3/uL (0.0-0.2); BASO % 1.4 % (0.0-1.0); EOS # 0.2 10^3/uL (0.0-0.5); HEMATOCRIT 43.3 % (36.0-47.0); HEMOGLOBIN 14.2 g/dl (12.0-15.5); LYMPH # 1.9 10^3/uL (1.5-5.0); MEAN CORPUSCULAR HGB CONC 32.8 g/dl (32.0-36.5); MEAN CORPUSCULAR VOLUME 91.5 fl (80.0-96.0); MONO # 0.8 10^3/uL (0.0-0.8); MONO % 12.6 % (2.0-8.0); NEUTROPHILS # 3.5 10^3/uL (1.5-8.5); NEUTROPHILS % 53.7 % (36.0-66.0); PLATELET COUNT, AUTOMATED 269 10^3/uL (150-450); RED BLOOD COUNT 4.73 10^6/uL (4.00-5.40); WHITE BLOOD COUNT 6.4 10^3/uL (4.0-10.0)
[2020-09-15 14:01] LABS: ERYTHROCYTE SEDIMENTATION RATE 3 mm/hr (0-30)
[2020-09-15 14:02] LABS: C REACTIVE PROTEIN QUANTITATIV < 0.30 MG/DL (0.00-0.30); FREE T4 0.86 NG/DL (0.76-1.46); RHEUMATOID FACTOR QUANT < 10.0 IU/ML (<15.0); URIC ACID 2.9 MG/DL (2.6-6.0)
[2020-09-15 14:04] LABS: FOLATE 12.2 NG/ML; VITAMIN B12 LEVEL 558 PG/ML
== END ==
LOC: M PLALAB 11:38
PROVIDERS: ATTEND Physician Assistant Surgical
DX: M25.552 Pain in left hip (principal)

== ENCOUNTER → 2020-09-25 | Outpatient (CLI) | payer MEDICARE, MEDICAID ==
--- NOTE | 2020-09-25 16:32 | REPVR ---
PROCEDURE INFORMATION: Exam: MR Cervical Spine Without Contrast Exam date and time: 09/25/2020 11:00 AM Age: 55 years old Clinical indication: Neck pain; Additional info: Spinal stenosis TECHNIQUE: Imaging protocol: Multiplanar magnetic resonance images of the cervical spine without contrast. COMPARISON: CT Spine,cervical w/o contrast 08/18/2020 5:04 PM FINDINGS: Cervical vertebral body heights are intact. Straightening of the cervical lordosis. The dens is intact. Multilevel Modic type 1 edematous degenerative endplate change from C5 through T1. No cord compression, expansion, or abnormal cord signal. Visualized structures of the posterior fossa are unremarkable. Soft tissues are unremarkable. C2-C3: No significant canal or foraminal narrowing. C3-C4: Uncovertebral spurring causes mild left foraminal narrowing. No significant canal narrowing. C4-C5: Uncovertebral spurring causes mild bilateral foraminal narrowing. No significant canal narrowing. C5-C6: Posterior disc protrusion and uncovertebral spurring cause mild canal narrowing with moderate right and moderate to severe left foraminal narrowing. C6-C7: Posterior disc protrusion and uncovertebral spurring cause moderate canal narrowing with effacement of the anterior thecal sac. Moderate left and severe right foraminal narrowing. C7-T1: Posterior disc protrusion and uncovertebral spurring cause moderate canal narrowing. Severe bilateral foraminal narrowing. IMPRESSION: Multilevel spondylotic changes of the cervical spine, as detailed above. Electronically signed by: Leonard Bermudez On 09/25/2020 16:31:46 PM
== END ==
LOC: M PLAIMG 10:19
PROVIDERS: ATTEND Physician Assistant Surgical
DX: M48.02 Spinal stenosis, cervical region (principal)

== ENCOUNTER → 2021-05-24 | Outpatient (CLI) | payer MEDICARE, MEDICAID ==
[~2021-05-24] MED LIST changes: +TIZA10TA PO; -TIZA4TAB4 PO
== END ==
LOC: M PLAIMG 15:25
PROVIDERS: ATTEND Physician Assistant
DX: M79.642 Pain in left hand (principal); S69.92XA Unspecified injury of left wrist, hand and finger(s), initial encounter

== ENCOUNTER → 2021-06-26 | Outpatient (CLI) | payer MEDICARE, MEDICAID ==
[2021-06-26 15:30] LABS: HEMATOCRIT 41.2 % (36.0-47.0); HEMOGLOBIN 13.5 g/dl (12.0-15.5); MEAN CORPUSCULAR HEMOGLOBIN 29.9 pg (27.0-33.0); MEAN CORPUSCULAR HGB CONC 32.8 g/dl (32.0-36.5); MEAN CORPUSCULAR VOLUME 91.2 fl (80.0-96.0); PLATELET COUNT, AUTOMATED 223 10^3/uL (150-450); RED BLOOD COUNT 4.52 10^6/uL (4.00-5.40); WHITE BLOOD COUNT 4.1 10^3/uL (4.0-10.0)
[2021-06-26 15:47] LABS: ERYTHROCYTE SEDIMENTATION RATE 4 mm/hr (0-30)
[2021-06-26 16:01] LABS: ALBUMIN 3.9 GM/DL (3.2-5.2); ALT/SGPT 17 U/L (12-78); BILIRUBIN,TOTAL 0.4 MG/DL (0.2-1.0); BLOOD UREA NITROGEN 11 MG/DL (7-18); CALCIUM LEVEL 9.2 MG/DL (8.5-10.1); CARBON DIOXIDE LEVEL 31 MEQ/L (21-32); CHLORIDE LEVEL 106 MEQ/L (98-107); CREATININE FOR GFR 0.94 MG/DL (0.55-1.30); GLOMERULAR FILTRATION RATE > 60.0 (>51); GLUCOSE, FASTING 79 MG/DL (70-100); POTASSIUM SERUM 4.4 MEQ/L (3.5-5.1); RHEUMATOID FACTOR QUANT < 10.0 IU/ML (<15.0); SODIUM LEVEL 139 MEQ/L (136-145); TOTAL PROTEIN 6.6 GM/DL (6.4-8.2); URIC ACID 3.6 MG/DL (2.6-6.0)
== END ==
LOC: M PLALAB 13:11
PROVIDERS: ATTEND Student in an Organized Health Care Education/Training Program
DX: M25.50 Pain in unspecified joint (principal)

== ENCOUNTER → 2021-09-27 | Outpatient (CLI) | payer MEDICARE, MEDICAID ==
[2021-09-27 16:44] LABS: BASO # 0.1 10^3/uL (0.0-0.2); BASO % 1.1 % (0.0-1.0); EOS # 0.4 10^3/uL (0.0-0.5); HEMATOCRIT 41.1 % (36.0-47.0); HEMOGLOBIN 13.4 g/dl (12.0-15.5); LYMPH # 1.4 10^3/uL (1.5-5.0); MEAN CORPUSCULAR HEMOGLOBIN 30.1 pg (27.0-33.0); MEAN CORPUSCULAR HGB CONC 32.6 g/dl (32.0-36.5); MEAN CORPUSCULAR VOLUME 92.4 fl (80.0-96.0); MONO # 0.6 10^3/uL (0.0-0.8); MONO % 11.8 % (2.0-8.0); NEUTROPHILS # 2.3 10^3/uL (1.5-8.5); NEUTROPHILS % 48.7 % (36.0-66.0); PLATELET COUNT, AUTOMATED 234 10^3/uL (150-450); RED BLOOD COUNT 4.45 10^6/uL (4.00-5.40); WHITE BLOOD COUNT 4.8 10^3/uL (4.0-10.0)
[2021-09-27 17:43] LABS: ERYTHROCYTE SEDIMENTATION RATE 5 mm/hr (0-30)
[2021-09-27 18:42] LABS: ALBUMIN 3.9 GM/DL (3.2-5.2); ALT/SGPT 20 U/L (12-78); BILIRUBIN,TOTAL 0.4 MG/DL (0.2-1.0); BLOOD UREA NITROGEN 12 MG/DL (7-18); C REACTIVE PROTEIN QUANTITATIV 0.34 MG/DL (0.00-0.30); CALCIUM LEVEL 9.3 MG/DL (8.5-10.1); CARBON DIOXIDE LEVEL 30 MEQ/L (21-32); CHLORIDE LEVEL 108 MEQ/L (98-107); CREATININE FOR GFR 0.74 MG/DL (0.55-1.30); GLOMERULAR FILTRATION RATE > 60.0 (>51); GLUCOSE, FASTING 85 MG/DL (70-100); POTASSIUM SERUM 4.4 MEQ/L (3.5-5.1); RHEUMATOID FACTOR QUANT < 10.0 IU/ML (<15.0); SODIUM LEVEL 141 MEQ/L (136-145); TOTAL PROTEIN 6.8 GM/DL (6.4-8.2); URIC ACID 3.1 MG/DL (2.6-6.0)
== END ==
LOC: M LAB 15:41
PROVIDERS: ATTEND Orthopaedic Surgery
DX: M65.312 Trigger thumb, left thumb (principal); M65.311 Trigger thumb, right thumb

== ENCOUNTER → 2021-12-13 | Outpatient (CLI) | payer MEDICARE, MEDICAID ==
[2021-12-13 16:35] LABS: CHOLESTEROL RISK RATIO 2.41 (<5); FREE T4 0.73 NG/DL (0.76-1.46); THYROID STIMULATING HORMONE 1.54 uIU/ML (0.358-3.740)
[2021-12-13 19:03] LABS: HEMOGLOBIN A1c 5.4 %
== END ==
LOC: M LAB 15:19
PROVIDERS: ATTEND Student in an Organized Health Care Education/Training Program
DX: Z00.00 Encounter for general adult medical examination without abnormal findings (principal); E78.00 Pure hypercholesterolemia, unspecified

== ENCOUNTER 2022-01-09 12:32 | Emergency (ER) | payer MEDICARE, MEDICAID ==
[~2022-01-09] VITALS: Ht 165.1 cm; Wt 75.0 kg
[2022-01-09 12:34] VITALS: BP 110/71
[2022-01-09] MEDS ORDERED: ONDANSETRON 4MG ORAL DISINTEGRATING TAB PO ONE (14:10)
[2022-01-09] MEDS ORDERED: ACETAMINOPHEN 500 MG TAB PO ONE (14:10)
[2022-01-09 14:25] LABS: RSV AMPLIFICATION NEGATIVE (NEGATIVE)
[2022-01-09] MEDS ORDERED: ONDA4TAB6 PO (15:35)
[2022-01-14] MEDS ORDERED: VANC125C3 PO (14:12)
== END 2022-01-09 15:45 | disposition home or self-care (01) ==
LOC: M ED 12:32
DX: R11.2 Nausea with vomiting, unspecified (principal); R19.7 Diarrhea, unspecified; S02.5XXA Fracture of tooth (traumatic), initial encounter for closed fracture; M79.10 Myalgia, unspecified site; R94.31 Abnormal electrocardiogram [ECG] [EKG]; N96 Recurrent pregnancy loss; M79.7 Fibromyalgia; J45.909 Unspecified asthma, uncomplicated; Z91.018 Allergy to other foods; Z88.8 Allergy status to other drugs, medicaments and biological substances; Z79.899 Other long term (current) drug therapy

== ENCOUNTER → 2022-02-01 | Outpatient (CLI) | payer MEDICARE, MEDICAID ==
[~2022-02-01] MED LIST changes: +VANC125C3 PO
[2022-02-01 18:32] LABS: BASO # 0.1 10^3/uL (0.0-0.2); EOS # 0.2 10^3/uL (0.0-0.5); EOS % 2.9 % (0.0-3.0); HEMATOCRIT 39.7 % (36.0-47.0); HEMOGLOBIN 12.8 g/dl (12.0-15.5); LYMPH # 1.6 10^3/uL (1.5-5.0); LYMPH % 26.1 % (24.0-44.0); MEAN CORPUSCULAR HEMOGLOBIN 30.3 pg (27.0-33.0); MEAN CORPUSCULAR HGB CONC 32.2 g/dl (32.0-36.5); MEAN CORPUSCULAR VOLUME 94.1 fl (80.0-96.0); MONO # 0.7 10^3/uL (0.0-0.8); MONO % 12.1 % (2.0-8.0); NEUTROPHILS # 3.4 10^3/uL (1.5-8.5); NEUTROPHILS % 57.7 % (36.0-66.0); PLATELET COUNT, AUTOMATED 289 10^3/uL (150-450); RED BLOOD COUNT 4.22 10^6/uL (4.00-5.40); WHITE BLOOD COUNT 5.9 10^3/uL (4.0-10.0)
[2022-02-01 18:58] LABS: ALBUMIN 3.7 G/DL (3.2-5.2); ALKALINE PHOSPHATASE 95 U/L (46-116); ALT/SGPT 15 U/L (7.0-40); AST/SGOT 14 U/L (<34); BILIRUBIN,TOTAL 0.3 MG/DL (0.3-1.2); BLOOD UREA NITROGEN 19 MG/DL (9-23); CALCIUM LEVEL 9.4 MG/DL (8.5-10.1); CARBON DIOXIDE LEVEL 28 MMOL/L (20-31); CHLORIDE LEVEL 103 MMOL/L (98-107); CREATININE FOR GFR 0.88 MG/DL (0.55-1.30); FOLATE 15.1 NG/ML (>5.4); GLOMERULAR FILTRATION RATE > 60.0 (>51); GLUCOSE, FASTING 89 MG/DL (60-100); POTASSIUM SERUM 4.5 MMOL/L (3.5-5.1); SODIUM LEVEL 138 MMOL/L (136-145); THYROID STIMULATING HORMONE 2.552 uIU/ML (0.55-4.78); TOTAL PROTEIN 6.5 G/DL (5.7-8.2)
[2022-02-01 18:59] LABS: VITAMIN B12 LEVEL 556 PG/ML (211-911)
== END ==
LOC: M RAD 16:22
PROVIDERS: ATTEND Student in an Organized Health Care Education/Training Program
DX: R07.89 Other chest pain (principal); R53.83 Other fatigue; Z13.29 Encounter for screening for other suspected endocrine disorder; R91.8 Other nonspecific abnormal finding of lung field; J84.10 Pulmonary fibrosis, unspecified
CPT/HCPCS: 36415; 71046; 80053; 82607; 82746; 84443; 85025; G0463

== ENCOUNTER 2022-04-09 12:23 | Emergency (ER) | payer MEDICARE, MEDICAID ==
[~2022-04-09] VITALS: Ht 165.1 cm; Wt 70.5 kg
[2022-04-09 18:29] VITALS: BP 119/59
== END 2022-04-09 18:32 | disposition home or self-care (01) ==
LOC: M ED 12:23
DX: S00.83XA Contusion of other part of head, initial encounter (principal); S60.212A Contusion of left wrist, initial encounter; W01.0XXA Fall on same level from slipping, tripping and stumbling without subsequent striking against object, initial encounter; Y92.481 Parking lot as the place of occurrence of the external cause; M79.7 Fibromyalgia; F32.A Depression, unspecified; F41.9 Anxiety disorder, unspecified; G47.33 Obstructive sleep apnea (adult) (pediatric); J45.909 Unspecified asthma, uncomplicated; Z91.018 Allergy to other foods; Z79.899 Other long term (current) drug therapy

== ENCOUNTER → 2022-06-17 | Outpatient (CLI) | payer MEDICARE, MEDICAID ==
[~2022-06-17] MED LIST changes: +ARTIDRO4 OP; -POLYOPD OP
== END ==
LOC: M PLAIMG 09:45
PROVIDERS: ATTEND Student in an Organized Health Care Education/Training Program
DX: J01.00 Acute maxillary sinusitis, unspecified (principal); M85.851 Other specified disorders of bone density and structure, right thigh; M85.852 Other specified disorders of bone density and structure, left thigh

== ENCOUNTER → 2022-06-17 | Outpatient (CLI) | payer MEDICARE, MEDICAID | LOC: M WHC 10:11 | PROVIDERS: ATTEND Student in an Organized Health Care Education/Training Program | DX: M85.851 Other specified disorders of bone density and structure, right thigh (principal); M85.852 Other specified disorders of bone density and structure, left thigh ==

== ENCOUNTER → 2022-07-10 | Outpatient (CLI) | payer MEDICARE, MEDICAID ==
[2022-07-10 12:36] LABS: BASO # 0.1 10^3/uL (0.0-0.2); BASO % 1.2 % (0.0-1.0); EOS # 0.1 10^3/uL (0.0-0.5); EOS % 1.8 % (0.0-3.0); HEMATOCRIT 44.7 % (36.0-47.0); HEMOGLOBIN 14.5 g/dl (12.0-15.5); LYMPH # 1.5 10^3/uL (1.5-5.0); LYMPH % 30.1 % (24.0-44.0); MEAN CORPUSCULAR HEMOGLOBIN 30.1 pg (27.0-33.0); MEAN CORPUSCULAR HGB CONC 32.4 g/dl (32.0-36.5); MEAN CORPUSCULAR VOLUME 92.9 fl (80.0-96.0); MONO # 0.6 10^3/uL (0.0-0.8); MONO % 11.4 % (2.0-8.0); NEUTROPHILS # 2.8 10^3/uL (1.5-8.5); NEUTROPHILS % 55.3 % (36.0-66.0); PLATELET COUNT, AUTOMATED 296 10^3/uL (150-450); RED BLOOD COUNT 4.81 10^6/uL (4.00-5.40)
[2022-07-10 13:02] LABS: ALKALINE PHOSPHATASE 109 U/L (46-116); ALT/SGPT 16 U/L (7.0-40); AST/SGOT 17 U/L (<34); BILIRUBIN,TOTAL 0.5 MG/DL (0.3-1.2); BLOOD UREA NITROGEN 12 MG/DL (9-23); C REACTIVE PROTEIN QUANTITATIV < 0.40 MG/DL (<1.0); CALCIUM LEVEL 9.4 MG/DL (8.5-10.1); CARBON DIOXIDE LEVEL 30 MMOL/L (20-31); CHLORIDE LEVEL 108 MMOL/L (98-107); CREATININE FOR GFR 0.88 MG/DL (0.55-1.30); GLOMERULAR FILTRATION RATE > 60.0 (>51); GLUCOSE, FASTING 95 MG/DL (60-100); POTASSIUM SERUM 4.6 MMOL/L (3.5-5.1); SODIUM LEVEL 143 MMOL/L (136-145); TOTAL PROTEIN 6.4 G/DL (5.7-8.2)
[2022-07-10 13:03] LABS: RHEUMATOID FACTOR QUANT 7.7 IU/ML (<14)
[2022-07-10 13:31] LABS: ERYTHROCYTE SEDIMENTATION RATE 7 mm/hr (0-30)
[2022-07-11 20:08] LABS: ANTI DOUBLE STRAND-DNA AB 1 IU/mL (0-9); ANTINUCLEAR ANTIBODIES DIRECT Positive (Negative); CYCLIC CITRULLINATED PEPTIDE 5 units (0-19); RNP ANTIBODIES 1.4 AI (0.0-0.9); SJOGREN'S ANTI SS-A <0.2 AI (0.0-0.9); SJOGREN'S ANTI SS-B <0.2 AI (0.0-0.9); SMITH ANTIBODIES <0.2 AI (0.0-0.9)
== END ==
LOC: M LAB 11:59
PROVIDERS: ATTEND Student in an Organized Health Care Education/Training Program
DX: M25.50 Pain in unspecified joint (principal)

== ENCOUNTER → 2022-12-20 | Outpatient (CLI) | payer MEDICARE, MEDICAID ==
[~2022-12-20] MED LIST changes: +CELE0.09 PO; -CELE1CAP9 PO; -MIRT-62 PO; +MIRT-88 PO
[2022-12-20 15:23] LABS: BASO # 0.1 10^3/uL (0.0-0.2); BASO % 1.2 % (0.0-1.0); EOS # 0.2 10^3/uL (0.0-0.5); EOS % 5.6 % (0.0-3.0); HEMATOCRIT 44.8 % (36.0-47.0); HEMOGLOBIN 14.7 g/dl (12.0-15.5); LYMPH # 1.4 10^3/uL (1.5-5.0); LYMPH % 34.8 % (24.0-44.0); MEAN CORPUSCULAR HEMOGLOBIN 30.3 pg (27.0-33.0); MEAN CORPUSCULAR HGB CONC 32.8 g/dl (32.0-36.5); MEAN CORPUSCULAR VOLUME 92.4 fl (80.0-96.0); MONO # 0.5 10^3/uL (0.0-0.8); NEUTROPHILS # 1.9 10^3/uL (1.5-8.5); NEUTROPHILS % 45.2 % (36.0-66.0); PLATELET COUNT, AUTOMATED 194 10^3/uL (150-450); RED BLOOD COUNT 4.85 10^6/uL (4.00-5.40); WHITE BLOOD COUNT 4.1 10^3/uL (4.0-10.0)
[2022-12-20 15:58] LABS: ALBUMIN 3.7 G/DL (3.2-5.2); ALKALINE PHOSPHATASE 93 U/L (46-116); ALT/SGPT 10 U/L (7.0-40); AST/SGOT 14 U/L (<34); BILIRUBIN,TOTAL 0.3 MG/DL (0.3-1.2); BLOOD UREA NITROGEN 24 MG/DL (9-23); CARBON DIOXIDE LEVEL 31 MMOL/L (20-31); CHLORIDE LEVEL 102 MMOL/L (98-107); CHOLESTEROL LEVEL 186 MG/DL (<200); CHOLESTEROL RISK RATIO 1.89 (<5); CREATININE FOR GFR 0.88 MG/DL (0.55-1.30); GLOMERULAR FILTRATION RATE > 60.0 (>51); GLUCOSE, FASTING 86 MG/DL (60-100); LDL CHOLESTEROL 80.2 MG/DL (<100); POTASSIUM SERUM 5.1 MMOL/L (3.5-5.1); PROLACTIN 6.83 NG/ML; SODIUM LEVEL 139 MMOL/L (136-145); THYROID STIMULATING HORMONE 1.691 uIU/ML (0.55-4.78); TOTAL PROTEIN 6.3 G/DL (5.7-8.2); TRIGLYCERIDES LEVEL 39 MG/DL (<150)
== END ==
LOC: M LAB 14:57
PROVIDERS: ATTEND Student in an Organized Health Care Education/Training Program
DX: R76.8 Other specified abnormal immunological findings in serum (principal); Z79.899 Other long term (current) drug therapy

== ENCOUNTER → 2022-12-23 | Outpatient (REF) | payer MEDICARE | LOC: M SFHCPLAZ 10:49 | PROVIDERS: ATTEND Student in an Organized Health Care Education/Training Program | DX: Z12.4 Encounter for screening for malignant neoplasm of cervix (principal); R87.618 Other abnormal cytological findings on specimens from cervix uteri ==

== ENCOUNTER → 2023-01-24 | Outpatient (CLI) | payer MEDICARE, MEDICAID | LOC: M WHC 15:03 | PROVIDERS: ATTEND Student in an Organized Health Care Education/Training Program | DX: Z12.31 Encounter for screening mammogram for malignant neoplasm of breast (principal) ==

== ENCOUNTER → 2023-02-06 | Outpatient (REF) | payer MEDICARE | LOC: M SFHCPLAZ 13:38 | PROVIDERS: ATTEND Student in an Organized Health Care Education/Training Program | DX: F31.9 Bipolar disorder, unspecified (principal) ==

== ENCOUNTER 2023-03-17 13:34 | Emergency (ER) | payer MEDICARE ==
[~2023-03-17] VITALS: Ht 165.1 cm; Wt 76.2 kg
[2023-03-17] MEDS ORDERED: IPRATROPIUM 0.5MG/ALBUTEROL 2.5MG INH SOL UD 3ML (DUONEB) NEB ONE (18:10)
[2023-03-17] MEDS ORDERED: CEFD300C PO (19:00)
[2023-03-17] MEDS ORDERED: DOXY100C82 PO (19:00)
[2023-03-17 19:05] VITALS: BP 129/79; TEMP 97.9; O2SAT 100
[2023-03-17] MEDS ORDERED: DOXYCYCLINE HYCLATE 100MG TABLET PO ONE (19:05)
[2023-03-17] MEDS ORDERED: CEFDINIR 300 MG CAP (OMNICEF) PO ONE (19:05)
== END 2023-03-17 19:17 | disposition home or self-care (01) ==
LOC: M ED 13:34
DX: J18.9 Pneumonia, unspecified organism (principal); M79.7 Fibromyalgia; I73.00 Raynaud's syndrome without gangrene; F17.200 Nicotine dependence, unspecified, uncomplicated; Z88.1 Allergy status to other antibiotic agents; Z11.52 Encounter for screening for COVID-19; Z79.899 Other long term (current) drug therapy

== ENCOUNTER 2023-03-25 08:19 | Emergency (ER) | payer MEDICARE ==
[~2023-03-25] VITALS: Ht 162.6 cm; Wt 76.0 kg
[~2023-03-25 08:19] MED LIST changes: +CEFD300C PO; +DOXY100C82 PO
[2023-03-25] MEDS ORDERED: MELO7.5T35 (08:27)
[2023-03-25] MEDS ORDERED: QUET50TA4 PO (08:27)
[2023-03-25] MEDS ORDERED: DOXE10CA (08:27)
[2023-03-25] MEDS ORDERED: DIVA500T94 (08:27)
[2023-03-25] MEDS ORDERED: TIZA2TA (08:27)
[2023-03-25 09:43] LABS: RSV AMPLIFICATION NEGATIVE (NEGATIVE)
[2023-03-25] MEDS ORDERED: ALBUTEROL SULFATE 2.5MG/0.5ML INH NEB SOLN NEB ONE (12:50)
[2023-03-25] MEDS ORDERED: methylPREDNISolone 125MG 2ML VIAL IV ONE (12:50)
[2023-03-25] MEDS ORDERED: BENZONATATE 100MG CAPSULE PO ONE (12:50)
[2023-03-25 13:35] LABS: BASO # 0.1 10^3/uL (0.0-0.2); BASO % 1.1 % (0.0-1.0); EOS # 0.1 10^3/uL (0.0-0.5); EOS % 1.3 % (0.0-3.0); HEMATOCRIT 42.6 % (36.0-47.0); LYMPH # 1.6 10^3/uL (1.5-5.0); MEAN CORPUSCULAR HEMOGLOBIN 30.8 pg (27.0-33.0); MEAN CORPUSCULAR HGB CONC 32.9 g/dl (32.0-36.5); MEAN CORPUSCULAR VOLUME 93.8 fl (80.0-96.0); MONO # 0.6 10^3/uL (0.0-0.8); NEUTROPHILS # 2.2 10^3/uL (1.5-8.5); NEUTROPHILS % 48.4 % (36.0-66.0); PLATELET COUNT, AUTOMATED 308 10^3/uL (150-450); RED BLOOD COUNT 4.54 10^6/uL (4.00-5.40); WHITE BLOOD COUNT 4.5 10^3/uL (4.0-10.0)
[2023-03-25 13:56] LABS: ALKALINE PHOSPHATASE 89 U/L (46-116); ALT/SGPT 15 U/L (7.0-40); AST/SGOT 14 U/L (<34); BILIRUBIN,DIRECT 0.2 MG/DL (<0.4); BILIRUBIN,TOTAL 0.5 MG/DL (0.3-1.2); BLOOD UREA NITROGEN 16 MG/DL (9-23); CALCIUM LEVEL 9.7 MG/DL (8.5-10.1); CARBON DIOXIDE LEVEL 30 MMOL/L (20-31); CHLORIDE LEVEL 106 MMOL/L (98-107); CREATININE FOR GFR 0.96 MG/DL (0.55-1.30); GLOMERULAR FILTRATION RATE > 60.0 (>51); GLUCOSE, FASTING 87 MG/DL (60-100); POTASSIUM SERUM 4.8 MMOL/L (3.5-5.1); SODIUM LEVEL 141 MMOL/L (136-145)
[2023-03-25] MEDS ORDERED: BENZ200C70 PO (14:33)
[2023-03-25] MEDS ORDERED: ALBU6.7H6 INH (14:33)
[2023-03-25 15:12] VITALS: BP 129/73; TEMP 97.6; O2SAT 97
== END 2023-03-25 15:18 | disposition home or self-care (01) ==
LOC: M ED 08:19
DX: R05.9 Cough, unspecified (principal); I45.10 Unspecified right bundle-branch block; J45.909 Unspecified asthma, uncomplicated; F41.9 Anxiety disorder, unspecified; F32.A Depression, unspecified; Z87.891 Personal history of nicotine dependence; Z88.1 Allergy status to other antibiotic agents; Z88.8 Allergy status to other drugs, medicaments and biological substances; Z91.018 Allergy to other foods; Z79.51 Long term (current) use of inhaled steroids; Z79.899 Other long term (current) drug therapy; Z79.2 Long term (current) use of antibiotics
CPT/HCPCS: 71046; 80048; 80076; 83605; 85025; 87040; 87070; 87205; 87486; 87581; 87631; 87633; 87798; 93005; 94640; 94760; 96374; 99284; J2930

== ENCOUNTER → 2023-05-06 | Outpatient (REF) | payer MEDICARE ==
[~2023-05-06] MED LIST changes: +ALBU6.7H6 INH; +BENZ200C70 PO; +DIFI200T PO; +DIVA500T94; +DOXE10CA; +MELO7.5T35; +QUET50TA4 PO; +TIZA2TA
== END ==
LOC: M LAB REF 17:57
PROVIDERS: ATTEND Student in an Organized Health Care Education/Training Program
DX: R19.7 Diarrhea, unspecified (principal); R10.13 Epigastric pain

== ENCOUNTER 2023-05-09 21:32 | Emergency (ER) | payer MEDICARE ==
[~2023-05-09] VITALS: Ht 170.2 cm; Wt 76.6 kg
[~2023-05-09 21:32] MED LIST changes: -DIFI200T PO
[2023-05-09] MEDS ORDERED: NS 1,000 ML IV ONE (22:25)
[2023-05-09] MEDS ORDERED: DIFI200T PO (23:11)
[2023-05-09] MEDS: FIDAXOMICIN 200 MG TAB (DIFICID) PO STA (23:46)
[2023-05-10 00:33] VITALS: BP 125/73; TEMP 98.1; O2SAT 98
== END 2023-05-10 00:43 | disposition home or self-care (01) ==
LOC: M ED 21:32
DX: A04.72 Enterocolitis due to Clostridium difficile, not specified as recurrent (principal); Z88.8 Allergy status to other drugs, medicaments and biological substances; Z88.1 Allergy status to other antibiotic agents; Z91.018 Allergy to other foods; Z79.51 Long term (current) use of inhaled steroids; Z79.899 Other long term (current) drug therapy

== ENCOUNTER → 2023-05-22 | Outpatient (CLI) | payer MEDICARE ==
[~2023-05-22] MED LIST changes: +DIFI200T PO
[2023-05-22 15:50] LABS: BASO # 0.1 10^3/uL (0.0-0.2); BASO % 1.1 % (0.0-1.0); EOS # 0.1 10^3/uL (0.0-0.5); HEMATOCRIT 44.8 % (36.0-47.0); HEMOGLOBIN 14.9 g/dl (12.0-15.5); LYMPH # 1.7 10^3/uL (1.5-5.0); MEAN CORPUSCULAR HEMOGLOBIN 31.8 pg (27.0-33.0); MEAN CORPUSCULAR HGB CONC 33.3 g/dl (32.0-36.5); MEAN CORPUSCULAR VOLUME 95.5 fl (80.0-96.0); MONO # 0.6 10^3/uL (0.0-0.8); MONO % 9.8 % (2.0-8.0); NEUTROPHILS % 60.8 % (36.0-66.0); PLATELET COUNT, AUTOMATED 250 10^3/uL (150-450); RED BLOOD COUNT 4.69 10^6/uL (4.00-5.40); WHITE BLOOD COUNT 6.5 10^3/uL (4.0-10.0)
[2023-05-22 16:02] LABS: ERYTHROCYTE SEDIMENTATION RATE 2 mm/hr (0-30)
[2023-05-22 16:17] LABS: C REACTIVE PROTEIN QUANTITATIV < 0.40 MG/DL (<1.0)
[2023-05-22 16:18] LABS: RHEUMATOID FACTOR QUANT 6.7 IU/ML (<14)
[2023-05-22 16:19] LABS: ALBUMIN 3.7 G/DL (3.2-5.2); ALKALINE PHOSPHATASE 69 U/L (46-116); ALT/SGPT < 9 U/L (7.0-40); AST/SGOT 11 U/L (<34); BILIRUBIN,TOTAL 0.3 MG/DL (0.3-1.2); BLOOD UREA NITROGEN 18 MG/DL (9-23); CALCIUM LEVEL 9.3 MG/DL (8.5-10.1); CARBON DIOXIDE LEVEL 30 MMOL/L (20-31); CHLORIDE LEVEL 105 MMOL/L (98-107); CREATININE FOR GFR 0.98 MG/DL (0.55-1.30); GLOMERULAR FILTRATION RATE > 60.0 (>51); GLUCOSE, FASTING 102 MG/DL (60-100); POTASSIUM SERUM 4.8 MMOL/L (3.5-5.1); SODIUM LEVEL 138 MMOL/L (136-145); TOTAL PROTEIN 6.5 G/DL (5.7-8.2)
== END ==
LOC: M LAB 15:13
PROVIDERS: ATTEND Student in an Organized Health Care Education/Training Program
DX: M35.1 Other overlap syndromes (principal)

== ENCOUNTER → 2023-06-09 | Outpatient (CLI) | payer MEDICARE | LOC: M CARPUL 10:20 | PROVIDERS: ATTEND Student in an Organized Health Care Education/Training Program | DX: J20.8 Acute bronchitis due to other specified organisms (principal) ==

== ENCOUNTER → 2023-06-19 | Outpatient (CLI) | payer MEDICARE | LOC: M LAB 11:44 | PROVIDERS: ATTEND Student in an Organized Health Care Education/Training Program | DX: F31.9 Bipolar disorder, unspecified (principal) ==

== ENCOUNTER → 2023-09-10 | Outpatient (CLI) | payer MEDICARE, MEDICAID ==
[~2023-09-10] MED LIST changes: +ONDA-282 PO; -ONDA4TAB6 PO
[2023-09-10 18:26] LABS: VALPROIC ACID (DEPAKOTE) 28.8 UG/ML (50.0-100.0)
[2023-09-10 18:27] LABS: THYROID STIMULATING HORMONE 2.01 uIU/ML (0.55-4.78); TOTAL 25(OH) VITAMIN D 33.3 NG/ML (20.0-100.0)
[2023-09-10 19:00] LABS: APPEARANCE, URINE CLEAR (CLEAR); BACTERIA, URINE AUTO NEGATIVE (NEGATIVE); BILIRUBIN, URINE AUTO NEGATIVE (NEGATIVE); BLOOD, URINE BLOOD NEGATIVE (NEGATIVE); COLOR, URINE YELLOW (YELLOW); GLUCOSE, URINE (UA) AUTO NEGATIVE (NEGATIVE); KETONE, URINE AUTO NEGATIVE (NEGATIVE); LEUKOCYTE ESTERASE, URINE AUTO NEGATIVE (NEGATIVE); MUCUS, URINE SMALL (NEGATIVE); NITRITE, URINE AUTO NEGATIVE (NEGATIVE); PROTEIN, URINE AUTO NEGATIVE (NEGATIVE); RBC, URINE AUTO 0 /HPF (0-3); SPECIFIC GRAVITY URINE AUTO 1.021 (1.002-1.035); SQUAMOUS EPITHELIAL CELL UR AU 1 /HPF (0-6); UROBILINOGEN, URINE AUTO 0.2 mg/dL (0.0-2.0); WBC, URINE AUTO 1 /HPF (0-3)
== END ==
LOC: M PLALAB 15:05
PROVIDERS: ATTEND Student in an Organized Health Care Education/Training Program
DX: R53.83 Other fatigue (principal); R10.30 Lower abdominal pain, unspecified; Z51.81 Encounter for therapeutic drug level monitoring; Z79.899 Other long term (current) drug therapy

== ENCOUNTER → 2024-03-31 | Outpatient (CLI) | payer MEDICARE, MEDICAID ==
[~2024-03-31] MED LIST changes: +CYTO100T2 PO; -CYTO1TAB2 PO
[2024-03-31 15:02] LABS: BASO % 0.7 % (0.0-1.0); EOS # 0.1 10^3/uL (0.0-0.5); EOS % 2.6 % (0.0-3.0); HEMATOCRIT 43.5 % (36.0-47.0); HEMOGLOBIN 14.2 g/dl (12.0-15.5); HEMOGLOBIN A1c 5.2 % (4.0-6.0); LYMPH # 1.5 10^3/uL (1.5-5.0); LYMPH % 35.8 % (24.0-44.0); MEAN CORPUSCULAR HEMOGLOBIN 30.9 pg (27.0-33.0); MEAN CORPUSCULAR HGB CONC 32.6 g/dl (32.0-36.5); MEAN CORPUSCULAR VOLUME 94.8 fl (80.0-96.0); MONO # 0.4 10^3/uL (0.0-0.8); MONO % 10.2 % (2.0-8.0); NEUTROPHILS # 2.1 10^3/uL (1.5-8.5); NEUTROPHILS % 50.5 % (36.0-66.0); PLATELET COUNT, AUTOMATED 246 10^3/uL (150-450); RED BLOOD COUNT 4.59 10^6/uL (4.00-5.40); WHITE BLOOD COUNT 4.2 10^3/uL (4.0-10.0)
[2024-03-31 15:10] LABS: ALBUMIN 3.5 G/DL (3.2-5.2); ALKALINE PHOSPHATASE 74 U/L (35-104); ALT/SGPT 11 U/L (7.0-40); AST/SGOT 12 U/L (<34); BILIRUBIN,TOTAL 0.3 MG/DL (0.3-1.2); BLOOD UREA NITROGEN 19 MG/DL (9-23); CALCIUM LEVEL 9.4 MG/DL (8.5-10.1); CARBON DIOXIDE LEVEL 30 MMOL/L (20-31); CHLORIDE LEVEL 107 MMOL/L (98-107); CREATININE FOR GFR 0.89 MG/DL (0.55-1.30); GLOMERULAR FILTRATION RATE > 60.0 (>51); GLUCOSE, FASTING 87 MG/DL (60-100); POTASSIUM SERUM 4.8 MMOL/L (3.5-5.1); SODIUM LEVEL 144 MMOL/L (136-145); TOTAL PROTEIN 6.6 G/DL (5.7-8.2)
== END ==
LOC: M LAB 13:45
PROVIDERS: ATTEND Student in an Organized Health Care Education/Training Program
DX: Z13.1 Encounter for screening for diabetes mellitus (principal); Z00.00 Encounter for general adult medical examination without abnormal findings

== ENCOUNTER → 2024-05-04 | Outpatient (CLI) | payer MEDICARE, MEDICAID ==
[~2024-05-04] MED LIST changes: +VANC125C13 PO; -VANC125C3 PO
[2024-05-04 12:20] LABS: BASO # 0.1 10^3/uL (0.0-0.2); BASO % 1.1 % (0.0-1.0); EOS # 0.1 10^3/uL (0.0-0.5); EOS % 2.4 % (0.0-3.0); HEMATOCRIT 40.1 % (36.0-47.0); HEMOGLOBIN 13.5 g/dl (12.0-15.5); LYMPH # 2.3 10^3/uL (1.5-5.0); LYMPH % 49.8 % (24.0-44.0); MEAN CORPUSCULAR HEMOGLOBIN 31.1 pg (27.0-33.0); MEAN CORPUSCULAR HGB CONC 33.7 g/dl (32.0-36.5); MEAN CORPUSCULAR VOLUME 92.4 fl (80.0-96.0); MONO # 0.6 10^3/uL (0.0-0.8); MONO % 12.2 % (2.0-8.0); NEUTROPHILS # 1.6 10^3/uL (1.5-8.5); NEUTROPHILS % 34.3 % (36.0-66.0); PLATELET COUNT, AUTOMATED 235 10^3/uL (150-450); RED BLOOD COUNT 4.34 10^6/uL (4.00-5.40); WHITE BLOOD COUNT 4.7 10^3/uL (4.0-10.0)
[2024-05-04 12:28] LABS: ERYTHROCYTE SEDIMENTATION RATE 3 mm/hr (0-30)
[2024-05-04 12:31] LABS: URIC ACID 4.2 MG/DL (3.1-7.8)
[2024-05-04 12:34] LABS: ALBUMIN 3.7 G/DL (3.2-5.2); ALKALINE PHOSPHATASE 81 U/L (35-104); ALT/SGPT 10 U/L (7.0-40); AST/SGOT 11 U/L (<34); BILIRUBIN,TOTAL 0.3 MG/DL (0.3-1.2); BLOOD UREA NITROGEN 20 MG/DL (9-23); C REACTIVE PROTEIN QUANTITATIV < 0.50 MG/DL (<1.0); CALCIUM LEVEL 9.1 MG/DL (8.5-10.1); CARBON DIOXIDE LEVEL 28 MMOL/L (20-31); CHLORIDE LEVEL 105 MMOL/L (98-107); CREATININE FOR GFR 0.99 MG/DL (0.55-1.30); GLOMERULAR FILTRATION RATE > 60.0 (>51); GLUCOSE, FASTING 87 MG/DL (60-100); POTASSIUM SERUM 4.2 MMOL/L (3.5-5.1); SODIUM LEVEL 141 MMOL/L (136-145); TOTAL PROTEIN 6.8 G/DL (5.7-8.2)
[2024-05-04 12:35] LABS: RHEUMATOID FACTOR QUANT < 3.5 IU/ML (<14)
== END ==
LOC: M LAB 10:54
PROVIDERS: ATTEND Student in an Organized Health Care Education/Training Program
DX: M35.1 Other overlap syndromes (principal)

== ENCOUNTER → 2024-05-25 | Outpatient (CLI) | payer MEDICARE, MEDICAID ==
[~2024-05-25] MED LIST changes: +DOXY-442 PO; -DOXY100C82 PO
== END ==
LOC: M WHC 12:52
PROVIDERS: ATTEND Student in an Organized Health Care Education/Training Program
DX: Z12.31 Encounter for screening mammogram for malignant neoplasm of breast (principal)

== ENCOUNTER → 2024-11-27 | Outpatient (CLI) | payer MEDICARE, MEDICAID ==
[~2024-11-27] MED LIST changes: +ALBU8.5H INH; +ALPR0.25 PO; +ASHWAGANDHA PA; +DIVA-41 PO; -DIVA500T94; +NITR30OI TOP; +OCUVTAB8 PO; +OMEGCAP9 PO; +OMEP-173 PO; +PREG-35 PO; -PREG100CA PO; +SENN-225 PO; -SENO8.6T5 PO; +SYMB16INH INH; -TIZA2TA; +TIZA2TA PO
== END ==
LOC: M RAD 12:28
DX: M51.372 Other intervertebral disc degeneration, lumbosacral region with discogenic back pain and lower extremity pain (principal); M48.02 Spinal stenosis, cervical region

== ENCOUNTER → 2024-12-24 | Outpatient (CLI) | payer MEDICARE, MEDICAID | LOC: M RAD 10:39 | DX: M25.551 Pain in right hip (principal) ==